=== PATIENT | male | born 1970 | race Caucasian/White ===

== ENCOUNTER → 2020-04-04 | Outpatient (CLI) | payer OTHER ==
[~2020-04-04] MED LIST: ACYCLOVIR800 MG PO; BACTRIM 400 MG-1 TA1 PO; CALCIUM CARBON500 M3 PO; COMPAZINE10 M2 PO; DIFLUCAN100 M1 PO; LEVAQUIN 5500 MG/TA1 PO; ROXICODONE 55 MG/TAB PO; ZESTRIL2.5 M1 PO
[2020-04-05 12:20] VITALS: BP 138/80
== END ==
LOC: LAB 09:43
DX: C83.38 Diffuse large B-cell lymphoma, lymph nodes of multiple sites (principal); D64.81 Anemia due to antineoplastic chemotherapy

== ENCOUNTER → 2020-04-05 | Outpatient (CLI) | payer OTHER ==
[~2020-04-05] VITALS: Ht 193 cm; Wt 95.5 kg
[2020-04-05] VITALS (10 sets, daily range): BP systolic 101–138; BP diastolic 71–80
== END ==
LOC: AMSURD 09:37
DX: C83.38 Diffuse large B-cell lymphoma, lymph nodes of multiple sites (principal); D64.81 Anemia due to antineoplastic chemotherapy
CPT/HCPCS: J7050